=== PATIENT | female | born 1990 | race American Indian/Alaskan Native ===

== ENCOUNTER 2016-12-04 18:26 | Emergency (ER) | payer SELFPAY ==
[2016-12-04 19:32] LABS: Basophils % (Auto) 0.4 % (0.0-1.8); Eosinophils % (Auto) 1.7 % (0.0-4.3); Hematocrit 36.7 % (30.3-42.9); Hemoglobin 12.1 gm/dl (10.1-14.3); Mean Corpuscular HGB Conc 33 % (30-34); Mean Corpuscular Hemoglobin 29 pg (28-32); Mean Corpuscular Volume 86 fl (79-97); Platelet Count 225 K/mm3 (140-440); Red Blood Count 4.25 M/mm3 (3.65-5.03); Red Cell Distribution Width 13.2 % (13.2-15.2); White Blood Count 6.2 K/mm3 (4.5-11.0)
[2016-12-04 19:53] LABS: Anion Gap 19 mmol/L; Blood Urea Nitrogen 6 mg/dL (7-17); Calcium 9.2 mg/dL (8.4-10.2); Carbon Dioxide 24 mmol/L (22-30); Chloride 97.4 mmol/L (98-107); Glucose 92 mg/dL (65-100); Potassium 3.6 mmol/L (3.6-5.0); Sodium 137 mmol/L (137-145)
[2016-12-04 20:00] LABS: Bilirubin,Urine NEG (Negative); Blood,Urine NEG (Negative); Ketones,Urine TR mg/dL (Negative); Leukocyte Esterase,Urine NEG (Negative); Mucus,Urine 3+ /HPF; Nitrite,Urine NEG (Negative)
[2016-12-04 22:07] VITALS: BP 104/60
[2016-12-04] MEDS ORDERED: NACL 0.9% 1000 ML 1,000 ML ONE ×4 (22:14→23:21)
[2016-12-04] MEDS ORDERED: ZOFRAN IV ONE (22:27)
--- NOTE | 2016-12-04 22:28 | Emergency Department Report ---
ED General Adult HPI - General Chief complaint: Nausea/Vomiting/Diarrhea Stated complaint: 12 WKS PREG/CRAMPING AND PAIN Time Seen by Provider: 12/04/16 21:47 Source: patient, RN notes reviewed Mode of arrival: Ambulatory Limitations: No Limitations - History of Present Illness Initial comments: This is a 26-year-old female. She is previously unknown to me. 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 Simeon. The patient is 2, para 1, and reports that her last menstrual period is September 13. Has a distant surgical history for section. The patient presents to the ER with suprapubic abdominal cramping, nausea and vomiting. There is no right lower quadrant pain, emesis is clear, nonbloody and nonbilious. She denies irritative and obstructive urinary symptoms, she denies chest pain and shortness of breath, she denies vaginal bleeding, vaginal discharge. She reports feeling somewhat constipated. The patient reports that she is passing gas normally. Her nausea decreased when she takes Zofran, increases when she eats. Abdominal pain worsens when she vomits. It decreases with rest. -: Gradual Location: abdomen Severity scale (0 -10): 0 Quality: aching Consistency: intermittent Improves with: rest Worsens with: eating Associated Symptoms: loss of appetite, nausea/vomiting. denies: confusion, chest pain, cough, diaphoresis, fever/chills, headaches, malaise, rash, seizure , shortness of breath, syncope, weakness - Related Data Home Medications Medication Instructions Recorded Confirmed Last Taken Zofran TAB 12/04/16 12/01/16 Previous Rx's Medication Instructions Recorded Last Taken Type Doxylamine/Pyridoxine HCl 1 each PO QHS PRN #30 tablet. 12/04/16 Unknown Rx [Charlene Hernandez 10-10 mg Tablet] Yvrose Root [Yvrose] 250 mg PO QID PRN #30 capsule 12/04/16 Unknown Rx Vit W-Ca,Fe,FA(<1 mg) 1 each PO QDAY #30 tablet 12/04/16 Unknown Rx [ Vitamins] Allergies Allergy/AdvReac Type Severity Reaction Status Date / Time No Known Allergies Allergy Verified 12/04/16 22:27 ED Review of Systems ROS: Stated complaint: 12 WKS PREG/CRAMPING AND PAIN Other details as noted in HPI Constitutional: denies: fever Eyes: denies: vision change ENT: denies: epistaxis Respiratory: denies: cough Cardiovascular: denies: chest pain Gastrointestinal: nausea Genitourinary: as per HPI. denies: dysuria Musculoskeletal: as per HPI Skin: denies: lesions Neurological: denies: weakness Psychiatric: denies: anxiety ED Past Medical Hx - Past Medical History Previous Medical History?: Yes Hx Headaches / Migraines: Yes - Surgical History Past Surgical History?: Yes Additional Surgical History: 05-15-2010 - Social History Smoking Status: Never Smoker Substance Use Type: Prescribed - Medications Home Medications: Home Medications Medication Instructions Recorded Confirmed Last Taken Type Doxylamine/Pyridoxine HCl 1 each PO QHS PRN #30 tablet.dr 12/04/16 Unknown Rx [Diclegis Dr 10-10 mg Tablet] Yvrose Root [Yvrose] 250 mg PO QID PRN #30 capsule 12/04/16 Unknown Rx Vit W-Ca,Fe,FA(<1 mg) 1 each PO QDAY #30 tablet 12/04/16 Unknown Rx [ Vitamins] Zofran TAB 12/04/16 12/01/16 History ED Physical Exam - General Limitations: No Limitations General appearance: alert, in no apparent distress - Head Head exam: Present: atraumatic, normocephalic - Eye Eye exam: Present: normal appearance, EOMI. Absent: nystagmus - ENT ENT exam: Present: normal exam, normal orophraynx, mucous membranes moist, normal external ear exam - Neck Neck exam: Present: normal inspection, full ROM. Absent: tenderness, meningismus - Respiratory Respiratory exam: Present: normal lung sounds bilaterally. Absent: respiratory distress, wheezes, rales, rhonchi, stridor, chest wall tenderness, accessory muscle use, decreased breath sounds, prolonged expiratory - Cardiovascular Cardiovascular Exam: Present: regular rate, normal rhythm, normal heart sounds. Absent: bradycardia, tachycardia, irregular rhythm, systolic murmur, diastolic murmur, rubs, gallop - GI/Abdominal GI/Abdominal exam: Present: soft, normal bowel sounds. Absent: distended, tenderness, guarding, rebound, rigid, pulsatile mass - External exam: Present: normal external exam Speculum exam: Present: normal speculum exam Bi-manual exam: Present: normal bi-manual exam, other (during the gynecologic examination, I am escorted by nurse CHERISE DIAZ). Absent: cervical motion tendernes, adnexal tenderness, adnexal mass, uterine enlargement, uterine tenderness - Extremities Exam Extremities exam: Present: normal inspection, full ROM, normal capillary refill. Absent: tenderness, pedal edema, joint swelling, calf tenderness - Back Exam Back exam: Present: normal inspection, full ROM. Absent: tenderness, CVA tenderness (R), CVA tenderness (L), muscle spasm, paraspinal tenderness, vertebral tenderness - Neurological Exam Neurological exam: Present: alert, oriented X3, normal gait, other (Extraocular movements intact. Tongue midline. No facial droop. Facial sensation intact to light touch in the V1, V2, V3 distribution bilaterally. 5 and 5 strength in 4 extremities.. Sensation is intact to light touch in 4 extremities.). Absent : motor sensory deficit - Psychiatric Psychiatric exam: Present: normal affect, normal mood - Skin Skin exam: Present: warm, dry, intact, normal color. Absent: rash ED Course Vital Signs 12/04/16 12/04/16 12/04/16 19:01 22:06 22:54 Temperature 99.1 F 98.8 F 98.8 F Pulse Rate 83 68 Respiratory 20 20 Rate Blood Pressure 126/79 Blood Pressure 104/60 [Left] O2 Sat by Pulse 100 99 Oximetry 12/05/16 00:20 Temperature Pulse Rate Respiratory 18 Rate Blood Pressure Blood Pressure [Left] O2 Sat by Pulse 98 Oximetry - Reevaluation(s) Reevaluation #1: 12/04/16 23:44 Differential diagnosis: , urinary tract infection, nausea and vomiting of , subchorionic hemorrhage, nausea and vomiting of , abdominal wall strain, abdominal wall strain, hyperemesis Assessment and plan: 26-year-old female with reported abdominal pain, nausea and vomiting the context of being . She is afebrile with reassuring vital signs, afebrile rectally. Her abdomen is soft and benign, her gynecologic exam is benign. Her laboratory studies were unremarkable, urinalysis and not suggest urinary tract infection, and an obstetrics ultrasound demonstrates an intrauterine with no evidence of subchorionic hemorrhage. The patient is given IV Zofran and D5 half-normal, and reports marked improvement in her symptoms. The patient is observed in the ER for a prolonged period of time, without clinical decompensation. We will discontinue Zofran, start her on diclegis and yvorse, and have her follow-up with an outpatient CNC PROGRAMMER doctor. She is reliable with this plan of care, and suitable for discharge at this time. ED Medical Decision Making - Lab Data Result diagrams: 12/04/16 19:12/04/16 19:17 Vital Signs 12/04/16 12/04/16 12/04/16 19:01 22:06 22:54 Temperature 99.1 F 98.8 F 98.8 F Pulse Rate 83 68 Respiratory 20 20 Rate Blood Pressure 126/79 Blood Pressure 104/60 [Left] O2 Sat by Pulse 100 99 Oximetry Lab Results 12/04/16 12/04/16 12/04/16 Range/Units 19:17 19:17 19:30 WBC 6.2 (4.5-11.0) K/mm3 RBC 4.25 (3.65-5.03) M/mm3 Hgb 12.1 (10.1-14.3) gm/dl Hct 36.7 (30.3-42.9) % MCV 86 (79-97) fl MCH 29 (28-32) pg MCHC 33 (30-34) % RDW 13.2 (13.2-15.2) % Plt Count 225 (140-440) K/mm3 Lymph % (Auto) 21.0 (13.4-35.0) % [place] % (Auto) 6.4 (0.0-7.3) % Eos % (Auto) 1.7 (0.0-4.3) % Baso % (Auto) 0.4 (0.0-1.8) % Lymph # 1.3 (1.2-5.4) K/mm3 Burke # 0.4 (0.0-0.8) K/mm3 Eos # 0.1 (0.0-0.4) K/mm3 Baso # 0.0 (0.0-0.1) K/mm3 Seg Neutrophils % 70.5 H (40.0-70.0) % Seg Neutrophils # 4.4 (1.8-7.7) K/mm3 Sodium 137 (137-145) mmol/L Potassium 3.6 (3.6-5.0) mmol/L Chloride 97.4 L (98-107) mmol/L Carbon Dioxide 24 (22-30) mmol/L Anion Gap 19 mmol/L BUN 6 L (7-17) mg/dL Creatinine 0.6 L (0.7-1.2) mg/dL Estimated GFR > 60 ml/min BUN/Creatinine Ratio 10.00 % Glucose 92 (65-100) mg/dL POC Glucose (70-105) Calcium 9.2 (8.4-10.2) mg/dL Urine Color Joanie (Yellow) Urine Turbidity Clear (Clear) Urine pH 5.0 (5.0-7.0) Ur Specific [place] 1.033 H (1.003-1.030) Urine Protein 30 mg/dl (Negative) mg/dL Urine Glucose (UA) Neg (Negative) mg/dL Urine Ketones Tr (Negative) mg/dL Urine Blood Neg (Negative) Urine Nitrite Neg (Negative) Urine Bilirubin Neg (Negative) Urine Urobilinogen 4.0 (<2.0) mg/dL Ur Leukocyte Esterase Neg (Negative) Urine WBC (Auto) 3.0 (0.0-6.0) /HPF Urine RBC (Auto) 1.0 (0.0-6.0) /HPF U Epithel Cells (Auto) 4.0 (0-13.0) /HPF Hyaline Casts 2 /LPF Urine Mucus 3+ /HPF Urine HCG, Qual (Negative) 12/04/16 12/04/16 Range/Units 19:30 22:42 WBC (4.5-11.0) K/mm3 RBC (3.65-5.03) M/mm3 Hgb (10.1-14.3) gm/dl Hct (30.3-42.9) % MCV (79-97) fl MCH (28-32) pg MCHC (30-34) % RDW (13.2-15.2) % Plt Count (140-440) K/mm3 Lymph % (Auto) (13.4-35.0) % Burke % (Auto) (0.0-7.3) % Eos % (Auto) (0.0-4.3) % Baso % (Auto) (0.0-1.8) % Lymph # (1.2-5.4) K/mm3 Burke # (0.0-0.8) K/mm3 Eos # (0.0-0.4) K/mm3 Baso # (0.0-0.1) K/mm3 Seg Neutrophils % (40.0-70.0) % Seg Neutrophils # (1.8-7.7) K/mm3 Sodium (137-145) mmol/L Potassium (3.6-5.0) mmol/L Chloride (98-107) mmol/L Carbon Dioxide (22-30) mmol/L Anion Gap mmol/L BUN (7-17) mg/dL Creatinine (0.7-1.2) mg/dL Estimated GFR ml/min BUN/Creatinine Ratio % Glucose (65-100) mg/dL POC Glucose 71 (70-105) Calcium (8.4-10.2) mg/dL Urine Color (Yellow) Urine Turbidity (Clear) Urine pH (5.0-7.0) Ur Specific [place] (1.003-1.030) Urine Protein (Negative) mg/dL Urine Glucose (UA) (Negative) mg/dL Urine Ketones (Negative) mg/dL Urine Blood (Negative) Urine Nitrite (Negative) Urine Bilirubin (Negative) Urine Urobilinogen (<2.0) mg/dL Ur Leukocyte Esterase (Negative) Urine WBC (Auto) (0.0-6.0) /HPF Urine RBC (Auto) (0.0-6.0) /HPF U Epithel Cells (Auto) (0-13.0) /HPF Hyaline Casts /LPF Urine Mucus /HPF Urine HCG, Qual Positive A (Negative) - Radiology Data Radiology results: report reviewed, image reviewed Obstetrics ultrasound demonstrates a single living intrauterine gestation, heart rate 161 bpm, normal amount of amniotic fluid, no evidence of subchorionic hemorrhage, yolk sac is visualized, crown rump length estimated gestational age is 12 weeks and 4 days. Critical care attestation.: If time is entered above; I have spent that time in minutes in the direct care of this critically ill patient, excluding procedure time. ED Disposition Clinical Impression: Nausea and vomiting during Disposition: DISCHARGED TO HOME OR SELFCARE Is pt being admited?: No Does the pt Need Aspirin: No Condition: Stable Instructions: Hyperemesis Gravidarum (ED) Additional Instructions: Cultures were sent today, results will be available next 3-5 days. Have your private entry level management contact the medical records department to obtain culture results. Avoid heavy and spicy foods. Discontinue Zofran. Take the yvrose and diclegis as needed for nausea and vomiting. Follow-up with her entry level management within the next week. Return to the ER right away with new pain, worsened pain, migration of pain, fevers or chills, intractable nausea or vomiting, inability to tolerate liquid feeds. Take acetaminophen, every 4-6 hours as needed for pain. Prescriptions: Doxylamine/Pyridoxine HCl [Diclegis Dr 10-10 mg Tablet] 1 each PO QHS PRN #30 tablet. PRN Reason: Nausea Yvrose Root [Yvrose] 250 mg PO QID PRN #30 capsule PRN Reason: Nausea Vit W-Ca,Fe,FA(<1 mg) [ Vitamins] 1 each PO QDAY #30 tablet Referrals: PRIMARY CARE, [Primary Care Provider] - 3-5 Days ELVER SINGH MD [Staff Physician] - 3-5 Days
--- NOTE | 2016-12-04 22:53 | Ultrasound Report ---
FINAL REPORT PROCEDURE: US OB TRANSVAGINAL TECHNIQUE: Real-time transvaginal sonography of the uterus, placenta, amniotic fluid, adnexa, and fetus was performed with image documentation. Measurements were obtained to determine age/size. M-mode Doppler was used to document heartbeat. CPT 76404 HISTORY: abd cramping COMPARISON: No prior studies are available for comparison. FINDINGS: The report for this exam was generated utilizing images from both transabdominal and transvaginal pelvic ultrasound both of which were performed today. There is a single living intrauterine gestation visualized with a heart rate of 161 beats per minute. The amount of amniotic fluid appears normal. Shape of the gestational sac appears normal. No evidence of subchorionic hemorrhage. [place]-rump length measurement is 6.1 centimeter corresponding to an age of 12 weeks and 4 days. Fetus currently too small to assess anatomy. No gross abnormality is seen. Yolk sac is visualized. Right ovary was visualized and showed no abnormality. The left ovary was not well visualized. No free fluid is seen in the cul-de-sac. IMPRESSION: There is a single living intrauterine gestation currently visualized in variable presentation. By crown-rump length measurement the estimated age is 12 weeks 4 days[address] the EDC 06/14/2017 1.0 weeks. Fetus currently too small to assess anatomy. No gross abnormality is seen. Consider follow-up Ob ultrasound at 18-20 weeks to evaluate anatomy
[2016-12-04] MEDS ORDERED: LEVOPHED DRIP 4 MG/NS 250 ML 4 MG/250 ML BAG IV ONE (22:54)
--- NOTE | 2016-12-04 22:55 | Ultrasound Report ---
FINAL REPORT PROCEDURE: US OB \T\lt; = 14 WEEKS FETUS TECHNIQUE: Real-time transabdominal sonography of the uterus, placenta, amniotic fluid, adnexa, and fetus was performed with image documentation. Measurements were obtained to determine age/size. M-mode Doppler was used to document heartbeat. CPT 14769 HISTORY: abd cramping. Evaluate . COMPARISON: Transvaginal OB ultrasound also performed today. FINDINGS: The report for this exam was generated utilizing images from both transabdominal and transvaginal pelvic ultrasound both of which were performed today. There is a single living intrauterine gestation visualized with a heart rate of 161 beats per minute. The amount of amniotic fluid appears normal. Shape of the gestational sac appears normal. No evidence of subchorionic hemorrhage. [place]-rump length measurement is 6.1 centimeter corresponding to an age of 12 weeks and 4 days. Fetus currently too small to assess anatomy. No gross abnormality is seen. Yolk sac is visualized. Right ovary was visualized and showed no abnormality. The left ovary was not well visualized. No free fluid is seen in the cul-de-sac. IMPRESSION: There is a single living intrauterine gestation currently visualized in variable presentation. By crown-rump length measurement the estimated age is 12 weeks 4 days[address] This [address] the EDC 06/14/2017 1.0 weeks. Fetus currently too small to assess anatomy. No gross abnormality is seen. Consider follow-up Ob ultrasound at 18-20 weeks to evaluate anatomy
[2016-12-04] MEDS ORDERED: D5/0.45NS 1,000 ML IV SCH (23:00)
== END 2016-12-05 01:00 | disposition home or self-care (01) ==
LOC: ED 18:26
DX: O21.0 Mild hyperemesis gravidarum (principal); G43.909 Migraine, unspecified, not intractable, without status migrainosus; Z98.890 Other specified postprocedural states
CPT/HCPCS: 36415; 76801; 76817; 80048; 81001; 81025; 82962; 85025; 87591; 96361; 96374; 99284; J2405; J7030